=== PATIENT | female | born 1990 | race Caucasian/White ===

== ENCOUNTER 2017-02-15 17:20 | Inpatient (IN) | payer OTHER ==
[2017-02-15] MEDS ORDERED: Carboprost Tromethamine 250 MCG/1 ML Amp IM PRN (17:50)
[2017-02-15] MEDS ORDERED: Nalbuphine 10 MG/1 ML Vial IVPUSH PRN (17:50)
[2017-02-15] MEDS ORDERED: Terbutaline 1 MG/ML SDV SUBCUT PRN (17:50)
[2017-02-15] MEDS ORDERED: Sodium Chloride 0.9% 2.5 ML Syringe FLUSH PRN (17:50)
[2017-02-15] MEDS ORDERED: Ampicillin 2 GM in Sodium Chloride 0.9% 100 ML IV ONE (17:50)
[2017-02-15] MEDS ORDERED: Methylergonovine 0.2 MG/1 ML Amp IM PRN (17:50)
[2017-02-15] MEDS ORDERED: Misoprostol 200 MCG Tab PO PRN (17:50)
[2017-02-15] MEDS ORDERED: Sodium Chloride 0.9% 10 ML Syringe FLUSH PRN (17:50)
[2017-02-15] MEDS ORDERED: Butorphanol 1 MG/ML SDV IVPUSH PRN (17:50)
[2017-02-15] MEDS ORDERED: Lidocaine 1% 50 ML MDV INJECT PRN (17:50)
[2017-02-15] MEDS ORDERED: Water For Irrigation,Sterile 1,000 ML Container IRR PRN (17:50)
[2017-02-15] MEDS ORDERED: Oxytocin/Lactated Ringers 30 UNIT/500 ML BAG IV SCH (18:00)
[2017-02-15] MEDS ORDERED: Misoprostol 25 MCG (1/4 of 100 MCG) Tab VAG SCH (18:00)
[2017-02-15] MEDS: Lactated Ringers 1,000 ML IV SCH (18:08)
[2017-02-15] MEDS: Ampicillin 1 GM in Sodium Chloride 0.9% 50 ML IV SCH (22:55)
[2017-02-15] MEDS: Misoprostol 25 MCG (1/4 of 100 MCG) Tab VAG PRN (22:56)
[2017-02-15] MEDS ORDERED: Acetaminophen 500 MG Tab PO ONE (23:46)
[2017-02-16 00:33] LABS: CHLORIDE,CL 111 mmol/L (98-110); SODIUM,NA 140 mmol/L (136-146)
[2017-02-16] MEDS ORDERED: hydrOXYzine Pamoate 25 MG Cap PO ONE (00:40)
[2017-02-16] MEDS: Lactated Ringers 1,000 ML IV SCH ×4 (02:24→14:50)
[2017-02-16] MEDS: Ampicillin 1 GM in Sodium Chloride 0.9% 50 ML IV SCH ×5 (03:03→18:43)
[2017-02-16] MEDS: Misoprostol 25 MCG (1/4 of 100 MCG) Tab VAG PRN ×2 (04:31→09:00)
[2017-02-16] MEDS ORDERED: Misoprostol 25 MCG (1/4 of 100 MCG) Tab PO ONE ×2 (08:52→15:40)
[2017-02-16] MEDS ORDERED: Ropivacaine HCl/PF 100 ML ONE (14:36)
[2017-02-16] MEDS ORDERED: fentaNYL 100 MCG/2 ML SDV ONE ×2 (14:36→23:08)
[2017-02-16] MEDS ORDERED: Ropivacaine 0.2% 2 MG/ML 20 ML SDV ONE (14:36)
--- NOTE | 2017-02-16 15:17 | PCM.PREANE ---
Preanesthetic Assessment - Anesthesia/Transfusion/Family Hx Anesthesia History: Prior Anesthesia Without Reaction Family History of Anesthesia Reaction: No Transfusion History: No Prior Transfusion(s) - Review of Systems General: No Symptoms Pulmonary: No Symptoms Cardiovascular: No Symptoms Gastrointestinal: No symptoms Neurological: No Symptoms Other: Reports: None - Physical Assessment Height: 4 ft 10 in Weight: 67.132 kg ASA Class: 2 Mental Status: Alert & Oriented x3 Airway Class: Mallampati = 1 Dentition: Reports: Normal Dentition Thyro-Mental Finger Breadths: 3 Mouth Opening Finger Breadths: 3 ROM/Head Extension: Full Lungs: Clear to auscultation, Normal respiratory effort Cardiovascular: Regular Rate, Regular Rhythm - Lab Values: Laboratory Last Values WBC 8.17 K/uL (4.0-11.0) 02/15/17 18:08 RBC 4.69 M/uL (4.30-5.90) 02/15/17 18:08 Hgb 13.6 g/dL (12.0-16.0) 02/15/17 18:08 Hct 40.4 % (36.0-46.0) 02/15/17 18:08 MCV 86.1 fL (80.0-98.0) 02/15/17 18:08 MCH 29.0 pg (27.0-32.0) 02/15/17 18:08 MCHC 33.7 g/dL (31.0-37.0) 02/15/17 18:08 RDW Std Deviation 48.3 fl (28.0-62.0) 02/15/17 18:08 RDW Coeff of Adrienne 15 % (11.0-15.0) 02/15/17 18:08 Plt Count 215 K/uL (150-400) 02/15/17 18:08 MPV 11.20 fL (7.40-12.00) 02/15/17 18:08 Nucleated RBC % 0.0 /100WBC 02/15/17 18:08 Nucleated RBCs # 0 K/uL 02/15/17 18:08 Sodium 140 mmol/L (136-146) 02/15/17 23:57 Potassium 3.8 mmol/L (3.5-5.1) 02/15/17 23:57 Chloride 111 mmol/L (98-110) H 02/15/17 23:57 Carbon Dioxide 19 mmol/L (21-31) L 02/15/17 23:57 BUN 7 mg/dL (6.0-23.0) 02/15/17 23:57 Creatinine 0.6 mg/dL (0.6-1.5) 02/15/17 23:57 Est Cr Clr Drug Dosing 102.95 mL/min 02/15/17 23:57 Estimated GFR (MDRD) > 60.0 ml/min 02/15/17 23:57 Glucose 74 mg/dL (60-110) 02/15/17 23:57 Uric Acid 5.2 mg/dL (2.1-6.2) 02/15/17 23:57 Calcium 8.8 mg/dL (8.8-10.8) 02/15/17 23:57 Total Bilirubin 0.5 mg/dL (0.1-1.5) 02/15/17 23:57 AST 16 IU/L (5-40) 02/15/17 23:57 ALT 11 IU/L (8-54) 02/15/17 23:57 Alkaline Phosphatase 182 (40-150) H 02/15/17 23:57 Total Protein 5.9 g/dL (6.0-8.0) L 02/15/17 23:57 Albumin 3.3 g/dL (3.5-5.0) L 02/15/17 23:57 Globulin 2.6 g/dL (2.0-3.5) 02/15/17 23:57 Albumin/Globulin Ratio 1.3 (1.3-2.8) 02/15/17 23:57 Urine Color YELLOW 02/15/17 23:55 Urine Appearance CLEAR 02/15/17 23:55 Urine pH 6.0 (5.0-8.0) 02/15/17 23:55 Ur Specific Bradley 1.010 (1.001-1.035) 02/15/17 23:55 Urine Protein NEGATIVE mg/dL (NEGATIVE) 02/15/17 23:55 Urine Glucose (UA) NEGATIVE mg/dL (NEGATIVE) 02/15/17 23:55 Urine Ketones 40 mg/dL (NEGATIVE) H 02/15/17 23:55 Urine Occult Blood NEGATIVE (NEGATIVE) 02/15/17 23:55 Urine Nitrite NEGATIVE (NEGATIVE) 02/15/17 23:55 Urine Bilirubin NEGATIVE (NEGATIVE) 02/15/17 23:55 Urine Urobilinogen 0.2 EU/dL (<2.0) 02/15/17 23:55 Ur Leukocyte Esterase NEGATIVE (NEGATIVE) 02/15/17 23:55 Urine RBC 0-2 (0-2/HPF) 02/15/17 23:55 Urine WBC 0-2 (0-5/HPF) 02/15/17 23:55 Ur Epithelial Cells RARE (NONE-FEW) 02/15/17 23:55 Urine Bacteria RARE (NEGATIVE) 02/15/17 23:55 Blood Type O POSITIVE 02/15/17 18:08 Antibody Screen NEGATIVE 02/15/17 18:08 - Allergies Allergies/Adverse Reactions: Allergies Allergy/AdvReac Type Severity Reaction Status Date / Time No Known Allergies Allergy Verified 02/15/17 17:49 - Blood Blood Available: Yes Product(s) Available: PRBC - Acknowledgements Anesthesia Type Planned: Epidural Pt an Appropriate Candidate for the Planned Anesthesia: Yes Alternatives and Risks of Anesthesia Discussed w Pt/Guardian: Yes Pt/Guardian Understands and Agrees with Anesthesia Plan: Yes PreAnesthesia Questionnaire Genitourinary History: Reports: STD Other Genitourinary History: HSV 2 DIRECTOR OF PHYSICAL SECURITY History: Reports: - Infectious Disease History Infectious Disease History: Reports: Herpes - Past Surgical History HEENT Surgical History: Reports: Tonsillectomy - SUBSTANCE USE Smoking Status *Q: Never Smoker Recreational Drug Use History: No - CURRENT (IN HOUSE) MEDS Current Meds: Current Medications Butorphanol Tartrate (Stadol) 1 mg IVPUSH Q1H PRN PRN Reason: Pain Last Admin: 02/16/17 13:21 Dose: 1 mg Carboprost Tromethamine (Hemabate Ds) 250 mcg IM ASDIRECTED PRN PRN Reason: Post Hemorrhage Lactated Ringer's (Ringers, Lactated) 1,000 mls @ 150 mls/hr IV ASDIRECTED DONTRELL Last Admin: 02/16/17 13:33 Dose: 150 mls/hr Oxytocin/Lactated Ringer's (Pitocin In Lr 30 Units/500 Ml) 30 unit in 500 mls @ 2 mls/hr IV TITRATE DONTRELL; 2 MUNITS/MIN PRN Reason: Protocol Stop: 02/16/17 17:59 Ampicillin Sodium 1 gm/ Sodium (Chloride) 50 mls @ 100 mls/hr IV Q4H [facility] Last Admin: 02/16/17 11:19 Dose: 100 mls/hr Lidocaine HCl (Xylocaine 1%) 50 ml INJECT .ONCE PRN PRN Reason: Laceration repair Methylergonovine Maleate (Methergine) 0.2 mg IM ASDIRECTED PRN PRN Reason: Post Hemorrhage Misoprostol (Cytotec) 200 mcg PO .ONCE PRN PRN Reason: Post Hemorrhage Misoprostol (Cytotec) 25 mcg VAG .ONCE DONTRELL Last Admin: 02/15/17 18:54 Dose: 25 mcg Misoprostol (Cytotec) 25 mcg VAG Q4H PRN PRN Reason: Cervical Ripening Stop: 02/16/17 21:51 Last Admin: 02/16/17 09:00 Dose: 25 mcg Sodium Chloride (Saline Flush) 10 ml FLUSH ASDIRECTED PRN PRN Reason: Keep Vein Open Sodium Chloride (Saline Flush) 2.5 ml FLUSH ASDIRECTED PRN PRN Reason: Keep Vein Open Sterile Water (Sterile Water For Irrigation) 1,000 ml IRR ASDIRECTED PRN PRN Reason: delivery Terbutaline Sulfate (Brethine) 0.25 mg SUBCUT ASDIRECTED PRN PRN Reason: Tacysystole Discontinued Medications Acetaminophen (Tylenol Extra Strength) 1,000 mg PO NOW ONE Stop: 02/15/17 23:47 Last Admin: 02/15/17 23:57 Dose: 1,000 mg Fentanyl (Sublimaze) Confirm Administered Dose 200 mcg .ROUTE .STK-MED ONE Stop: 02/16/17 14:37 Hydroxyzine Pamoate (Vistaril) 25 mg PO ONETIME ONE Stop: 02/16/17 00:41 Last Admin: 02/16/17 00:48 Dose: 25 mg Ampicillin Sodium 2 gm/ Sodium (Chloride) 100 mls @ 200 mls/hr IV ONETIME ONE Stop: 02/15/17 18:19 Last Admin: 02/15/17 18:54 Dose: 200 mls/hr Ropivacaine (Naropin 0.2%) Confirm Administered Dose 100 mls @ as directed .ROUTE .STK-MED ONE Stop: 02/16/17 14:37 Misoprostol (Cytotec) 25 mcg PO ONETIME ONE Stop: 02/16/17 08:53 Last Admin: 02/16/17 09:05 Dose: 25 mcg Nalbuphine HCl (Nubain) 10 mg IVPUSH Q1H PRN PRN Reason: Pain (severe 7-10) Stop: 02/15/17 19:51 Ropivacaine (Naropin 0.2%) Confirm Administered Dose 20 ml .ROUTE .STK-MED ONE Stop: 02/16/17 14:37
[2017-02-16] MEDS ORDERED: Acetaminophen 500 MG Tab PO ONE (18:32)
[2017-02-16] MEDS ORDERED: Clindamycin Phosphate in D5W 600 MG in Premix Bag 1 BAG IV ONE ×2 (21:47)
[2017-02-16] MEDS ORDERED: Bupivacaine 0.5% 10 ML SDV ONE (21:54)
[2017-02-16] MEDS ORDERED: Oxytocin 10 Units/1 ML SDV ONE (22:07)
[2017-02-16] MEDS ORDERED: Morphine PF 10 MG/10 ML SDV ONE (22:13)
[2017-02-16] MEDS ORDERED: diphenhydrAMINE 50 MG/ML SDV IVPUSH PRN ×2 (23:31→23:34)
[2017-02-16] MEDS ORDERED: Naloxone 0.4 MG/ML Syringe IVPUSH PRN (23:31)
[2017-02-16] MEDS ORDERED: Nalbuphine 10 MG/1 ML Vial IVPUSH PRN (23:31)
--- NOTE | 2017-02-16 23:31 | PCM.OPNOTE ---
- General Post-Op/Procedure Note Date of Surgery/Procedure: 02/16/17 Operative Procedure(s): Primary section Findings: Male infant, Wt 3390 grams, Apgars 8 and 9. Grossly normal placenta with 3 vessel cord. Normal appearing uterus, tubes and ovaries. Pre Op Diagnosis: 1) 40.4 wks, 2) Arrest of dilation, 3) Maternal intrapartum fever, 4) GBS positive, Post-Op Diagnosis: Same Anesthesia Technique: Epidural Primary Surgeon: Rosmery Ulrich Pathology: Placenta Fluid Replacement, Intraop: 1,700 Output, Urine Amount: 150 EBL in mLs: 700 Complications: None Condition: Good
[2017-02-16] MEDS ORDERED: Acetaminophen/oxyCODONE 325-5 MG Tab PO PRN ×3 (23:32→23:34)
[2017-02-16] MEDS ORDERED: fentaNYL 100 MCG/2 ML SDV IVPUSH PRN (23:32)
[2017-02-16] MEDS ORDERED: Ondansetron 4 MG/2 ML SDV IVPUSH PRN (23:34)
[2017-02-16] MEDS ORDERED: Bisacodyl 10 MG Supp RECTAL PRN (23:34)
[2017-02-16] MEDS ORDERED: Lanolin 100% Cream 7 GM Tube TOP PRN (23:34)
[2017-02-16] MEDS ORDERED: Sodium Chloride 0.9% 10 ML Syringe FLUSH PRN (23:34)
[2017-02-16] MEDS ORDERED: Sodium Chloride 0.9% 2.5 ML Syringe FLUSH PRN (23:34)
[2017-02-16] MEDS: fentaNYL 100 MCG/2 ML SDV IVPUSH PRN ×2 (23:36→23:45)
--- NOTE | 2017-02-16 23:45 | PCM.POSTAN ---
POST ANESTHESIA ASSESSMENT - MENTAL STATUS Mental Status: alert, oriented - RESPIRATORY Respiratory Status: respiratory rate WNL, airway patent, O2 saturation stable - CARDIOVASCULAR CV Status: pulse rate WNL, blood pressure stable - GASTROINTESTINAL GI Status: no symptoms - PAIN Pain Score: 3 - POST OP HYDRATION Hydration Status: adequate & stable
[2017-02-16] MEDS: Ketorolac 30 MG/ML SDV IVPUSH SCH (23:55)
[2017-02-17] MEDS: Lactated Ringers 1,000 ML IV SCH ×2 (00:18→08:20)
--- NOTE | 2017-02-17 04:25 | OR ---
SURGEON: Rosmery Ulrich MD DATE OF PROCEDURE: 02/16/2017 PREOPERATIVE DIAGNOSES: 1. Intrauterine at 40 weeks and 4 days gestation. 2. Arrest of dilatation. 3. Maternal intrapartum fever. 4. GBS positive. POSTOPERATIVE DIAGNOSES: 1. Intrauterine at 40 weeks and 4 days gestation. 2. Arrest of dilatation. 3. Maternal intrapartum fever. 4. GBS positive. 5. Delivered. PROCEDURE: Primary low transverse section via Pfannenstiel. ANESTHESIA: Epidural. ESTIMATED BLOOD LOSS: 700 mL. IV FLUIDS: 1700 mL of crystalloid. URINE OUTPUT: 150 mL clear at the end of the procedure. COMPLICATIONS: None. DISPOSITION: Stable to recovery room. FINDINGS: Male infant, weight 3390 g, Apgars 8 and 9 at 1 and 5 minutes respectively. Grossly normal placenta with 3-vessel cord. Normal-appearing uterus, tubes, and ovaries. BRIEF HISTORY: The patient is a 26-year-old, primigravida who was admitted overnight at 40 weeks and 3 days for induction of labor secondary to postdates and polyhydramnios. The patient received several doses of Cytotec,both via oral and vaginal routes and also had a Cooks balloon placed for cervical ripening. After artificial membranes, the patient eventually progressed to 5 cm with no further cervical change after 8 hours.The patient adamantly declined oxytocin infusion citing it has been linked with autism. Despite multiple extensive discussion both during the antepartum and intrapartum periods explaining the role of oxytocin in induction/augmentation of labor and also discussing that there has been no scientific evidence linking oxytocin to autism spectrum disorders, the patient still refused to have oxytocin as part of her management. She opted rather to have . Risk of were discussed extensively with the patient including but not limited to bleeding, injury to organs including bowel, blood vessels, bladder and other vital organs, infection, risk and anesthesia risks were reviewed extensively. The patient consented to proceed. She was given multiple doses of ampicillin for GBS prophylaxis, but within the last 2 hours prior to the section, she developed an intrapartum fever of T-max of 100.9. She was then given gentamicin and also clindamycin was added to the regimen prior to surgery. The heart tracing remained in category 1. DESCRIPTION OF PROCEDURE: The patient was taken to the operating room where her epidural was found to be adequate. She was placed in supine position with leftward tilt. Urinary catheter and SCDs were in place. She was prepped and draped in a normal sterile fashion for a section. She had already received ampicillin, clindamycin and gentamicin. Appropriate time-out was held. A Pfannenstiel skin incision was made with the scalpel and carried through to the underlying layer of fascia with the Bovie. The fascia was scored in the midline and extended laterally with the Bovie. The superior aspect of this fascial incision was grasped with Rex clamps, elevated, and underlying rectus muscle was dissected off with the Bovie. Attention was turned to the inferior aspect of the fascia, which was also grasped with Rex clamps, elevated, and underlying rectus muscle dissected off with the Bovie. The rectus muscle was in the midline and the parietal peritoneum was reached and entered sharply with the Metzenbaum scissors. This was then extended upwards and downwards with good visualization of the bladder. It was further extended laterally by stretching. An Dudley self-retaining retractor was placed into the abdominal cavity. The vesicouterine peritoneum was identified and entered sharply with Metzenbaum scissors, this was extended and a bladder flap was created digitally. The lower uterine segment was then incised in a transverse fashion, further extended upwards and downwards by stretching. The head was then delivered atraumatically followed by the shoulders and the rest of the baby. The baby was vigorous and cried spontaneously at . The cord was double clamped and cut and the was handed over to Dr. Tran, the farm equipment operator on-call. Cord blood and gas samples were obtained. With delivery of the , oxytocin was commenced for prevention of hemorrhage (the patient has consented for oxytocin after delivery). The placenta was delivered spontaneously. The uterus was cleaned of all clots and debris. The hysterotomy was closed in 2 layers using 0 Vicryl suture, the first layer was closed in a running locked fashion and second imbricating layer was performed to obtain excellent hemostasis. The hysterotomy site was hemostatic. The gutters were cleaned of all clots and debris and the ovaries and tubes were inspected. Hysterotomy site was re-examined and found to have excellent hemostasis. The self-retaining retractor was removed from the abdominal cavity. The edges of the peritoneum were identified and the peritoneum was closed with 2-0 Vicryl suture. Muscle layer was reapproximated with 2 mattress sutures using 2-0 Vicryl. Subfascial layer was found to be hemostatic. The fascia was then closed with 0 Vicryl suture in a running fashion. The subcuticular layer was made hemostatic with electrocautery. The skin was closed with 4-0 Monocryl using subcuticular stitches. The patient tolerated the procedure well. Sponge, instrument, and needle counts were correct at the end of the procedure. The patient was taken to the recovery room in a stable condition. PRICILLA CLARK /[id number] KELI
[2017-02-17] MEDS: Ketorolac 30 MG/ML SDV IVPUSH SCH ×4 (05:48→22:11)
--- NOTE | 2017-02-17 06:06 | PCM48HPAN ---
Post Anesthesia Note - EVALUATION WITHIN 48HRS OF ANESTHETIC Vital Signs in Normal Range: Yes Patient Participated in Evaluation: Yes Respiratory Function Stable: Yes Airway Patent: Yes Cardiovascular Function Stable: Yes Hydration Status Stable: Yes Pain Control Satisfactory: Yes Nausea and Vomiting Control Satisfactory: Yes Mental Status Recovered: Yes - COMMENTS/OBSERVATIONS Free Text/Narrative:: up walking halls
[2017-02-17] MEDS: Ampicillin 1 GM in Sodium Chloride 0.9% 50 ML IV SCH (09:46)
[2017-02-17] MEDS: Docusate Sodium 100 MG Cap PO SCH ×2 (09:53→20:19)
--- NOTE | 2017-02-17 10:30 | PCM.PNPP ---
- General Info Date of Service: 02/17/17 Functional Status: Reports: pain controlled, tolerating diet, ambulating, incentive spirometry - Review of Systems General: Denies: Fever, Weakness, Fatigue, Malaise, Chills Pulmonary: Denies: shortness of breath, pleuritic chest pain, cough Cardiovascular: Denies: Chest Pain, Palpitations, Dyspnea on Exertion Gastrointestinal: Denies: Abdominal pain, Nausea, Vomiting Genitourinary: Denies: flank pain Neurological: Denies: Confusion, Headache Psychiatric: Denies: depression, mood lability - General Info Date of Service: 02/17/17 - Patient Data Vital Signs - most recent: Last Vital Signs Temp 37.1 C 02/17/17 06:45 Pulse 60 02/17/17 06:45 Resp 18 02/17/17 06:45 BP 131/81 02/17/17 06:45 Pulse Ox 97 02/17/17 06:45 Weight - most recent: 148 lb I&O - last 24 hours: Intake & Output 02/16/17 02/17/17 02/17/17 22:59 06:59 14:59 Intake Total 3600 Output Total 150 1350 Balance -150 2250 Lab Results - last 24 hrs: Laboratory Results - last 24 hr 02/17/17 Range/Units 04:40 Hgb 11.4 L (12.0-16.0) g/dL Hct 33.8 L (36.0-46.0) % Med Orders - Current: Current Medications Bisacodyl (Dulcolax) 10 mg RECTAL .ONCE PRN PRN Reason: Constipation Diphenhydramine HCl (Benadryl) 12.5 - 25 mg IVPUSH Q4H PRN PRN Reason: Itching Stop: 02/17/17 23:31 Diphenhydramine HCl (Benadryl) 25 mg IVPUSH Q6H PRN PRN Reason: Itching or Nausea Docusate Sodium (Colace) 100 mg PO BID DONTRELL Last Admin: 02/17/17 09:53 Dose: 100 mg Emollient Ointment (Lansinoh Hpa) 0 gm TOP ASDIRECTED PRN PRN Reason: Sore Nipples Fentanyl (Sublimaze) 50 mcg IVPUSH SEECOMMENT PRN PRN Reason: Pain (moderate 4-6) Last Admin: 02/16/17 23:45 Dose: 50 mcg Fentanyl (Sublimaze) 25 - 50 mcg IVPUSH Q30M PRN PRN Reason: Pain Lactated Ringer's (Ringers, Lactated) 1,000 mls @ 125 mls/hr IV ASDIRECTED [facility] Last Admin: 02/17/17 08:20 Dose: 125 mls/hr Ibuprofen (Motrin) 800 mg PO Q8H PRN PRN Reason: mild pain or fever Ketorolac Tromethamine (Toradol) 30 mg IVPUSH Q6H DONTRE[facility] Stop: 02/17/17 23:01 Last Admin: 02/17/17 05:48 Dose: 30 mg Nalbuphine HCl (Nubain) 5 mg IVPUSH Q3H PRN PRN Reason: Pruritis Stop: 02/17/17 23:31 Naloxone HCl (Narcan) 0.1 mg IVPUSH ONETIME PRN PRN Reason: Other Stop: 02/17/17 23:32 Ondansetron HCl (Zofran) 4 mg IVPUSH Q4H PRN PRN Reason: Nausea/Vomiting Oxycodone/Acetaminophen (Percocet 325-5 Mg) 1 - 2 tab PO Q6H PRN PRN Reason: Pain Stop: 02/18/17 14:00 Oxycodone/Acetaminophen (Percocet 325-5 Mg) 1 tab PO Q4H PRN PRN Reason: Pain (moderate 4-6) Oxycodone/Acetaminophen (Percocet 325-5 Mg) 2 tab PO Q4H PRN PRN Reason: Pain (moderate 4-6) Sodium Chloride (Saline Flush) 10 ml FLUSH ASDIRECTED PRN PRN Reason: Keep Vein Open Sodium Chloride (Saline Flush) 2.5 ml FLUSH ASDIRECTED PRN PRN Reason: Keep Vein Open Discontinued Medications Acetaminophen (Tylenol Extra Strength) 1,000 mg PO NOW ONE Stop: 02/15/17 23:47 Last Admin: 02/15/17 23:57 Dose: 1,000 mg Acetaminophen (Tylenol Extra Strength) 1,000 mg PO ONETIME ONE Stop: 02/16/17 18:33 Last Admin: 02/16/17 18:41 Dose: 1,000 mg Bupivacaine HCl (Sensorcaine-Mpf 0.5%) Confirm Administered Dose 20 ml .ROUTE .STK-MED ONE Stop: 02/16/17 21:55 Last Admin: 02/17/17 09:46 Dose: Not Given Butorphanol Tartrate (Stadol) 1 mg IVPUSH Q1H PRN PRN Reason: Pain Last Admin: 02/16/17 13:21 Dose: 1 mg Carboprost Tromethamine (Hemabate Ds) 250 mcg IM ASDIRECTED PRN PRN Reason: Post Hemorrhage Fentanyl (Sublimaze) Confirm Administered Dose 200 mcg .ROUTE .STK-MED ONE Stop: 02/16/17 14:37 Last Admin: 02/16/17 15:26 Dose: Not Given Fentanyl (Sublimaze) Confirm Administered Dose 100 mcg .ROUTE .STK-MED ONE Stop: 02/16/17 23:09 Hydroxyzine Pamoate (Vistaril) 25 mg PO ONETIME ONE Stop: 02/16/17 00:41 Last Admin: 02/16/17 00:48 Dose: 25 mg Ampicillin Sodium 2 gm/ Sodium (Chloride) 100 mls @ 200 mls/hr IV ONETIME ONE Stop: 02/15/17 18:19 Last Admin: 02/15/17 18:54 Dose: 200 mls/hr Lactated Ringer's (Ringers, Lactated) 1,000 mls @ 150 mls/hr IV ASDIRECTED DONTRELL Last Admin: 02/16/17 14:50 Dose: 999 mls/hr Oxytocin/Lactated Ringer's (Pitocin In Lr 30 Units/500 Ml) 30 unit in 500 mls @ 2 mls/hr IV TITRATE DONTRELL; 2 MUNITS/MIN PRN Reason: Protocol Stop: 02/16/17 17:59 Ampicillin Sodium 1 gm/ Sodium (Chloride) 50 mls @ 100 mls/hr IV Q4H [facility] Last Admin: 02/17/17 09:46 Dose: Not Given Ropivacaine (Naropin 0.2%) Confirm Administered Dose 100 mls @ as directed .ROUTE .STK-MED ONE Stop: 02/16/17 14:37 Last Admin: 02/16/17 15:25 Dose: Not Given Gentamicin Sulfate 120 mg/ (Sodium Chloride) 53 mls @ 100 mls/hr IV ONETIME ONE Stop: 02/16/17 20:21 Last Admin: 02/16/17 20:18 Dose: 100 mls/hr Clindamycin Phosphate 600 mg/ (Premix) 50 mls @ 100 mls/hr IV ONETIME ONE Stop: 02/16/17 22:16 Last Admin: 02/16/17 21:58 Dose: 100 mls/hr Lidocaine HCl (Xylocaine 1%) 50 ml INJECT .ONCE PRN PRN Reason: Laceration repair Methylergonovine Maleate (Methergine) 0.2 mg IM ASDIRECTED PRN PRN Reason: Post Hemorrhage Misoprostol (Cytotec) 200 mcg PO .ONCE PRN PRN Reason: Post Hemorrhage Misoprostol (Cytotec) 25 mcg VAG .ONCE [facility] Last Admin: 02/15/17 18:54 Dose: 25 mcg Misoprostol (Cytotec) 25 mcg VAG Q4H PRN PRN Reason: Cervical Ripening Stop: 02/16/17 21:51 Last Admin: 02/16/17 09:00 Dose: 25 mcg Misoprostol (Cytotec) 25 mcg PO ONETIME ONE Stop: 02/16/17 08:53 Last Admin: 02/16/17 09:05 Dose: 25 mcg Misoprostol (Cytotec) 25 mcg PO ONETIME ONE Stop: 02/16/17 15:41 Last Admin: 02/16/17 16:00 Dose: 25 mcg Morphine Sulfate (Duramorph Pf) Confirm Administered Dose 10 mg .ROUTE .STK-MED ONE Stop: 02/16/17 22:14 Nalbuphine HCl (Nubain) 10 mg IVPUSH Q1H PRN PRN Reason: Pain (severe 7-10) Stop: 02/15/17 19:51 Oxytocin (Pitocin) Confirm Administered Dose 20 unit .ROUTE .STK-MED ONE Stop: 02/16/17 22:08 Ropivacaine (Naropin 0.2%) Confirm Administered Dose 20 ml .ROUTE .STK-MED ONE Stop: 02/16/17 14:37 Last Admin: 02/16/17 15:25 Dose: Not Given Sodium Chloride (Saline Flush) 10 ml FLUSH ASDIRECTED PRN PRN Reason: Keep Vein Open Sodium Chloride (Saline Flush) 2.5 ml FLUSH ASDIRECTED PRN PRN Reason: Keep Vein Open Sterile Water (Sterile Water For Irrigation) 1,000 ml IRR ASDIRECTED PRN PRN Reason: delivery Terbutaline Sulfate (Brethine) 0.25 mg SUBCUT ASDIRECTED PRN PRN Reason: Tacysystole - Interaction Disposition, : [place] at Bedside Interaction: Holding Infant Feeding: Breastfed ; Nursed Well, Continues to Breastfeed Support Person: - Recovery Exam Fundal Tone: Firm Fundal Level: At Umbilicus Fundal Placement: Midline Lochia Amount: Scant Lochia Color: Rubra/Red Perineum Description: Intact, Minimal Bruising/Swelling Bladder Status: Indwelling Catheter in Place Urinary Elimination: Indwelling Catheter - Exam General: alert, oriented Neck: supple Lungs: Clear to auscultation, Normal respiratory effort Cardiovascular: Regular Rate, Regular Rhythm Abdomen: soft, no tenderness, no distension Extremities: no calf tenderness, edema Wound/Incisions: dressing dry and intact Psy/Mental Status: alert, normal affect, normal mood - Problem List & Annotations (1) delivery delivered SNOMED Code(s): 221038507 Code(s): O82 - ENCOUNTER FOR DELIVERY WITHOUT INDICATION Status: Acute Current Visit: Yes - Problem List Review Problem List Initiated/Reviewed/Updated: Yes - My Orders Last 24 Hours: My Active Orders 02/16/17 23:00 Ketorolac [Toradol] 30 mg IVPUSH Q6H 02/16/17 23:34 Patient Status [ADT] Routine Ambulate [RC] PER UNIT ROUTINE Communication Order [RC] PER UNIT ROUTINE Communication Order [RC] PER UNIT ROUTINE Communication Order [RC] Per Unit Routine May Shower [RC] ASDIRECTED RT Incentive Spirometry [RC] Q2HWA Urinary Catheter Removal [RC] Per Unit Routine Vital Signs [RC] PER UNIT ROUTINE Acetaminophen/oxyCODONE [Percocet 325-5 MG] 1 tab PO Q4H PRN Acetaminophen/oxyCODONE [Percocet 325-5 MG] 2 tab PO Q4H PRN Bisacodyl [Dulcolax] 10 mg RECTAL .ONCE PRN Lanolin [Lansinoh HPA] See Dose Instructions TOP ASDIRECTED PRN Ondansetron [Zofran] 4 mg IVPUSH Q4H PRN Sodium Chloride 0.9% [Saline Flush] 10 ml FLUSH ASDIRECTED PRN Sodium Chloride 0.9% [Saline Flush] 2.5 ml FLUSH ASDIRECTED PRN diphenhydrAMINE [Benadryl] 25 mg IVPUSH Q6H PRN Abdominal Binder [OM.PC] Routine Assess Lochia [WOMSER] Per Unit Routine Assess Uterine Involution [WOMSER] Per Unit Routine Breast Pump [WOMSER] Per Unit Routine Peripheral IV Discontinue [OM.PC] Routine Saline Lock Insert [OM.PC] Routine Sequential Compression Device [OM.PC] Per Unit Routine Resuscitation Status Routine 02/16/17 23:35 Antiembolic Devices [RC] PER UNIT ROUTINE Intake and Output [RC] Q4H 02/16/17 23:36 Notify Provider Intake and Out [RC] ASDIRECTED Notify Provider Vital Signs [RC] ASDIRECTED 02/16/17 23:45 Lactated Ringers [Ringers, Lactated] 1,000 ml IV ASDIRECTED 02/17/17 09:00 Docusate Sodium [Colace] 100 mg PO BID 02/17/17 Breakfast Regular Diet [DIET] 02/18/17 05:00 Ibuprofen [Motrin] 800 mg PO Q8H PRN - Assessment Assessment:: POD#1 s/p primary C/S foe arrest of dilation, stable and afebrile - Plan Plan:: Continue current management. Remove ceballos and OOB.
--- NOTE | 2017-02-17 14:11 | PCM.SN ---
- Free Text/Narrative Note: Irregular heart rate noted yesterday, seems to be a PVCs on the strip monitor during C/S. 12 lead EKG confirms ventricular bigeminy with ventricular premature beats. Patient is totally asymptomatic and is unaware of the irregular heart rhythm. Denies family history of cardiac defects. Findings reviewed with her and her . Will refer to cardiology outpatient at her 2 weeks post op appointment. In the interim anesthesia has placed her telemetry for the duration of her duramorph to keep a closer look at episodes of bradycardia.
--- NOTE | 2017-02-17 14:27 | PCM.SN ---
- Free Text/Narrative Note: Was notified by nursing that patient is having large swings in her HR as indicated by the continuous SpO2 monitoring from her duramorph precautions. Nursing is reporting HR anywhere between 30-140's while at rest. On exam her HR is very irregular, no murmur is noted. Discussed with the patient that I would like her to remain on telemetry until the AM after her duramorph precautions have . Pt understands and agrees. Will continue to follow. EKG was obtained and reviewed with Dr Ulrich.
[2017-02-17] MEDS: Magnesium Oxide 400 MG Tab PO SCH (16:55)
[2017-02-18] MEDS ORDERED: Ibuprofen 800 MG Tab PO PRN (05:00)
[2017-02-18] MEDS: Magnesium Oxide 400 MG Tab PO SCH (08:45)
[2017-02-18] MEDS: Docusate Sodium 100 MG Cap PO SCH (08:45)
[2017-02-18] MEDS ORDERED: Magnesium Sulfate/Water 2 GM in Premix Bag 1 BAG IV ONE (09:28)
--- NOTE | 2017-02-18 09:42 | PCM.PNPP ---
- General Info Date of Service: 02/18/17 Subjective Update: Patient is feeling well overall--she notes pain is controlled. She is ambulating within room. Voiding easily. Lochia is minimal. Working with . She denies any chest pain or palpitation. Functional Status: Reports: pain controlled, tolerating diet, ambulating, urinating - Review of Systems General: Denies: Fever, Weakness Cardiovascular: Denies: Lightheadedness Gastrointestinal: Denies: Abdominal pain, Diarrhea, Nausea, Vomiting Genitourinary: Denies: flank pain Psychiatric: Reports: no symptoms - General Info Date of Service: 02/18/17 - Patient Data Vital Signs - most recent: Last Vital Signs Temp 37.2 C 02/18/17 08:00 Pulse 80 02/18/17 08:00 Resp 16 02/18/17 08:00 BP 115/71 02/18/17 08:00 Pulse Ox 96 02/18/17 08:00 Weight - most recent: 67.132 kg Lab Results - last 24 hrs: Laboratory Results - last 24 hr 02/17/17 Range/Units 15:54 Magnesium 1.0 L (1.5-2.3) mEq/L Med Orders - Current: Current Medications Bisacodyl (Dulcolax) 10 mg RECTAL .ONCE PRN PRN Reason: Constipation Diphenhydramine HCl (Benadryl) 25 mg IVPUSH Q6H PRN PRN Reason: Itching or Nausea Docusate Sodium (Colace) 100 mg PO BID [facility] Last Admin: 02/18/17 08:45 Dose: 100 mg Emollient Ointment (Lansinoh Hpa) 0 gm TOP ASDIRECTED PRN PRN Reason: Sore Nipples Fentanyl (Sublimaze) 50 mcg IVPUSH SEECOMMENT PRN PRN Reason: Pain (moderate 4-6) Last Admin: 02/16/17 23:45 Dose: 50 mcg Fentanyl (Sublimaze) 25 - 50 mcg IVPUSH Q30M PRN PRN Reason: Pain Lactated Ringer's (Ringers, Lactated) 1,000 mls @ 125 mls/hr IV ASDIRECTED [facility] Last Infusion: 02/17/17 14:15 Dose: Infused Magnesium Sulfate 2 gm/ Premix 50 mls @ 50 mls/hr IV ONETIME ONE Stop: 02/18/17 10:27 Ibuprofen (Motrin) 800 mg PO Q8H PRN PRN Reason: mild pain or fever Magnesium Oxide (Magnesium Oxide) 800 mg PO DAILY [facility] Last Admin: 02/18/17 08:45 Dose: 800 mg Ondansetron HCl (Zofran) 4 mg IVPUSH Q4H PRN PRN Reason: Nausea/Vomiting Oxycodone/Acetaminophen (Percocet 325-5 Mg) 1 - 2 tab PO Q6H PRN PRN Reason: Pain Stop: 02/18/17 14:00 Oxycodone/Acetaminophen (Percocet 325-5 Mg) 1 tab PO Q4H PRN PRN Reason: Pain (moderate 4-6) Oxycodone/Acetaminophen (Percocet 325-5 Mg) 2 tab PO Q4H PRN PRN Reason: Pain (moderate 4-6) Last Admin: 02/18/17 08:45 Dose: 2 tab Sodium Chloride (Saline Flush) 10 ml FLUSH ASDIRECTED PRN PRN Reason: Keep Vein Open Sodium Chloride (Saline Flush) 2.5 ml FLUSH ASDIRECTED PRN PRN Reason: Keep Vein Open Discontinued Medications Acetaminophen (Tylenol Extra Strength) 1,000 mg PO NOW ONE Stop: 02/15/17 23:47 Last Admin: 02/15/17 23:57 Dose: 1,000 mg Acetaminophen (Tylenol Extra Strength) 1,000 mg PO ONETIME ONE Stop: 02/16/17 18:33 Last Admin: 02/16/17 18:41 Dose: 1,000 mg Bupivacaine HCl (Sensorcaine-Mpf 0.5%) Confirm Administered Dose 20 ml .ROUTE .STK-MED ONE Stop: 02/16/17 21:55 Last Admin: 02/17/17 09:46 Dose: Not Given Butorphanol Tartrate (Stadol) 1 mg IVPUSH Q1H PRN PRN Reason: Pain Last Admin: 02/16/17 13:21 Dose: 1 mg Carboprost Tromethamine (Hemabate Ds) 250 mcg IM ASDIRECTED PRN PRN Reason: Post Hemorrhage Diphenhydramine HCl (Benadryl) 12.5 - 25 mg IVPUSH Q4H PRN PRN Reason: Itching Stop: 02/17/17 23:31 Fentanyl (Sublimaze) Confirm Administered Dose 200 mcg .ROUTE .STK-MED ONE Stop: 02/16/17 14:37 Last Admin: 02/16/17 15:26 Dose: Not Given Fentanyl (Sublimaze) Confirm Administered Dose 100 mcg .ROUTE .STK-MED ONE Stop: 02/16/17 23:09 Hydroxyzine Pamoate (Vistaril) 25 mg PO ONETIME ONE Stop: 02/16/17 00:41 Last Admin: 02/16/17 00:48 Dose: 25 mg Ampicillin Sodium 2 gm/ Sodium (Chloride) 100 mls @ 200 mls/hr IV ONETIME ONE Stop: 02/15/17 18:19 Last Admin: 02/15/17 18:54 Dose: 200 mls/hr Lactated Ringer's (Ringers, Lactated) 1,000 mls @ 150 mls/hr IV ASDIRECTED [facility] Last Admin: 02/16/17 14:50 Dose: 999 mls/hr Oxytocin/Lactated Ringer's (Pitocin In Lr 30 Units/500 Ml) 30 unit in 500 mls @ 2 mls/hr IV TITRATE [facility]; 2 MUNITS/MIN PRN Reason: Protocol Stop: 02/16/17 17:59 Ampicillin Sodium 1 gm/ Sodium (Chloride) 50 mls @ 100 mls/hr IV Q4H [facility] Last Admin: 02/17/17 09:46 Dose: Not Given Ropivacaine (Naropin 0.2%) Confirm Administered Dose 100 mls @ as directed .ROUTE .STK-MED ONE Stop: 02/16/17 14:37 Last Admin: 02/16/17 15:25 Dose: Not Given Gentamicin Sulfate 120 mg/ (Sodium Chloride) 53 mls @ 100 mls/hr IV ONETIME ONE Stop: 02/16/17 20:21 Last Admin: 02/16/17 20:18 Dose: 100 mls/hr Clindamycin Phosphate 600 mg/ (Premix) 50 mls @ 100 mls/hr IV ONETIME ONE Stop: 02/16/17 22:16 Last Admin: 02/16/17 21:58 Dose: 100 mls/hr Ketorolac Tromethamine (Toradol) 30 mg IVPUSH Q6H [facility] Stop: 02/17/17 23:01 Last Admin: 02/17/17 22:11 Dose: 30 mg Lidocaine HCl (Xylocaine 1%) 50 ml INJECT .ONCE PRN PRN Reason: Laceration repair Methylergonovine Maleate (Methergine) 0.2 mg IM ASDIRECTED PRN PRN Reason: Post Hemorrhage Misoprostol (Cytotec) 200 mcg PO .ONCE PRN PRN Reason: Post Hemorrhage Misoprostol (Cytotec) 25 mcg VAG .ONCE [facility] Last Admin: 02/15/17 18:54 Dose: 25 mcg Misoprostol (Cytotec) 25 mcg VAG Q4H PRN PRN Reason: Cervical Ripening Stop: 02/16/17 21:51 Last Admin: 02/16/17 09:00 Dose: 25 mcg Misoprostol (Cytotec) 25 mcg PO ONETIME ONE Stop: 02/16/17 08:53 Last Admin: 02/16/17 09:05 Dose: 25 mcg Misoprostol (Cytotec) 25 mcg PO ONETIME ONE Stop: 02/16/17 15:41 Last Admin: 02/16/17 16:00 Dose: 25 mcg Morphine Sulfate (Duramorph Pf) Confirm Administered Dose 10 mg .ROUTE .STK-MED ONE Stop: 02/16/17 22:14 Nalbuphine HCl (Nubain) 10 mg IVPUSH Q1H PRN PRN Reason: Pain (severe 7-10) Stop: 02/15/17 19:51 Nalbuphine HCl (Nubain) 5 mg IVPUSH Q3H PRN PRN Reason: Pruritis Stop: 02/17/17 23:31 Naloxone HCl (Narcan) 0.1 mg IVPUSH ONETIME PRN PRN Reason: Other Stop: 02/17/17 23:32 Oxytocin (Pitocin) Confirm Administered Dose 20 unit .ROUTE .STK-MED ONE Stop: 02/16/17 22:08 Ropivacaine (Naropin 0.2%) Confirm Administered Dose 20 ml .ROUTE .STK-MED ONE Stop: 02/16/17 14:37 Last Admin: 02/16/17 15:25 Dose: Not Given Sodium Chloride (Saline Flush) 10 ml FLUSH ASDIRECTED PRN PRN Reason: Keep Vein Open Sodium Chloride (Saline Flush) 2.5 ml FLUSH ASDIRECTED PRN PRN Reason: Keep Vein Open Sterile Water (Sterile Water For Irrigation) 1,000 ml IRR ASDIRECTED PRN PRN Reason: delivery Terbutaline Sulfate (Brethine) 0.25 mg SUBCUT ASDIRECTED PRN PRN Reason: Tacysystole - Interaction Infant Disposition, : at Bedside Interaction: Holding Infant Feeding: Breastfed ; Nursed Well, Continues to Breastfeed Support Person: - Recovery Exam Fundal Tone: Firm Fundal Level: At Umbilicus Fundal Placement: Midline Lochia Amount: Scant Lochia Color: Rubra/Red Perineum Description: Intact, Minimal Bruising/Swelling Bladder Status: Voiding Urinary Elimination: Not Voiding, Other (see below) Other Urinary Elimination, : Ron out at 1415 - Exam General: alert, oriented Lungs: Clear to auscultation, Normal respiratory effort Cardiovascular: Regular Rate, Regular Rhythm Abdomen: bowel sounds present, soft. No: rebound, guarding, CVA tenderness Extremities: no calf tenderness Skin: warm, dry, intact Wound/Incisions: healing well, no drainage. No: erythema Psy/Mental Status: alert, normal affect - Problem List & Annotations (1) delivery delivered SNOMED Code(s): 275433556 Code(s): O82 - ENCOUNTER FOR DELIVERY WITHOUT INDICATION Status: Acute Current Visit: Yes - Problem List Review Problem List Initiated/Reviewed/Updated: Yes - My Orders Last 24 Hours: My Active Orders 02/17/17 16:45 Magnesium Oxide 800 mg PO DAILY 02/18/17 09:28 Magnesium Sulfate/Water [Magnesium Sulfate 2 GM in Water 50 ML] 2 gm Premix Bag 1 bag IV ONETIME 02/18/17 16:00 MAGNESIUM [CHEM] Routine - Assessment Assessment:: POD#2 s/p primary C/S Bigeminy/PVCs on telemetry--asymptomatic Hypomagnesemia - Plan Plan:: Patient is feeling well overall. Still bigeminy on tele--but patient is completely asymptomatic. Magnesium level is low at 1--started oral and will receive iv dose this am to help correct more quickly. Repeat lab this afternoon. Patient agrees to oral supplements. Discontinue telemetry and ambulate this afternoon. If patient feels well today, would like to go home later today. Discharge instructions reviewed. Follow up at [facility] 2 and 6 weeks. Infection and bleeding warnings reviewed. Follow up magnesium level at 2 week postop
[2017-02-18 15:20] VITALS: BP 127/81
== END 2017-02-18 17:40 | disposition home or self-care (01) | DRG 765 ==
LOC: MW.OBCHECK 17:20 → MW.OB 17:50 → MW.OBCHECK 17:51 → MW.OB 02-16 22:35 → OBSVTOIN 02-16 22:35 → MW.OB 02-17 10:41
PROVIDERS: ADMIT Obstetrics & Gynecology; ATTEND Obstetrics & Gynecology
PROC: 10D00Z1 Extraction of Products of Conception, Low, Open Approach (ICD-10-PCS; principal; 2017-02-16)
PROC: 3E0P7GC Introduction of Other Therapeutic Substance into Female Reproductive, Via Natural or Artificial Opening (ICD-10-PCS; 2017-02-16)
DX: O62.1 Secondary uterine inertia (principal); O75.2 Pyrexia during labor, not elsewhere classified; O99.824 Streptococcus B carrier state complicating childbirth; Z3A.40 40 weeks gestation of pregnancy; Z37.0 Single live birth; O99.820 Streptococcus B carrier state complicating pregnancy; O48.0 Post-term pregnancy; O40.9XX0 Polyhydramnios, unspecified trimester, not applicable or unspecified
CPT/HCPCS: 01967; 01968; 36415; 59025; 80053; 81001; 83735; 84550; 85014; 85018; 85027; 86850; 86900; 86901; 88307; 93005; A9270-GY; J0290; J0595; J1580; J1885; J2270; J2590; J2795; J3010; J3475; J7030; J7050; J7120

== ENCOUNTER → 2017-03-20 | Outpatient (CLI) | payer OTHER ==
--- NOTE | 2017-03-22 10:42 | ECHO ---
EXAM DATE: 03/20/17 PATIENT'S AGE: 26 The echocardiogram report can be seen in this patient's EMR (Electronic Medical Record) in the Reports section. KELI
== END ==
LOC: MW.US 13:57
PROVIDERS: ATTEND Internal Medicine
DX: I49.9 Cardiac arrhythmia, unspecified (principal)
CPT/HCPCS: 93306